=== PATIENT | female | born 1965 | race Caucasian/White ===

== ENCOUNTER → 2021-09-24 10:15 | Outpatient (BNVA) | payer MEDICAID, SELFPAY | PROVIDERS: PCP Obstetrics & Gynecology; Referring Provider Obstetrics & Gynecology; Visit Provider Specialist | DX: G31.84 Mild cognitive impairment of uncertain or unknown etiology (principal) | CPT/HCPCS: 36415; 82607; 82746; 85651; 86140; 86160; 86162; 86235; 86255; 86376; 96116; 99204; 99205 ==

== ENCOUNTER → 2021-11-15 10:32 | Outpatient (BNVA) | payer MEDICAID, SELFPAY | PROVIDERS: PCP Obstetrics & Gynecology; Visit Provider Specialist | DX: G30.9 Alzheimer's disease, unspecified (principal); F02.80 Dementia in other diseases classified elsewhere, unspecified severity, without behavioral disturbance, psychotic disturbance, mood disturbance, and anxiety; M13.0 Polyarthritis, unspecified; F32.A Depression, unspecified; M79.7 Fibromyalgia | CPT/HCPCS: 99214 ==

== ENCOUNTER 2021-12-11 12:26 | Outpatient (CLI) | payer MEDICAID, SELFPAY ==
--- NOTE | 2021-12-11 13:00 | MR_ITS ---
WS: [id number] MRI HEAD WITHOUT CONTRAST TECHNIQUE: Sagittal T1, T2 axial, T2 axial FLAIR, axial and coronal T1 images, axial susceptibility w eighted imaging, axial diffusion weighted images, and coronal T2 images were obtained. CLINICAL INFORMATION: G31.84 - Mild cognitive impairment, so stated COMPARISON: None. FINDINGS: No evidence of restricted diffusion to suggest acute ischemia. Ventricular system and cisterns are pa tent. Focal area of hemosiderin with surrounding encephalomalacia and gliosis involving the LEFT para sagittal cerebellum with blooming on the susceptibly weighted images. 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 Additional consideration is chronic focus of hemorrhage. No other suspicious foci of hemoside rin. Area of interest measures approximately 6 x 6 mm. This can be further evaluated MRI with gadolin ium to assess for adjacent enhancing venous angioma if indicated. Normal optic chiasm and pituitary infundibulum. Temporal lobes and hippocampal formations are normal in appearance. Normal vascular flow voids at the skull base. No extra-axial fluid collections. Parana angela sinuses and mastoid air cells are well aerated. MR/MR head wo con* [id number] IMPRESSION: 1. No evidence of diffusion to suggest acute ischemia. 2. 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 Less likely c hronic hypertensive hemorrhage. This can be further evaluated with gadolinium t o assess for concurrent venous angioma if desired. 3. Normal optic chiasm and pituitary infundibulum. 4. No other suspicious findings.
== END 2021-12-11 12:27 | disposition home or self-care (01) ==
LOC: RAD 12:27
PROVIDERS: PCP Obstetrics & Gynecology; Visit Provider Specialist
DX: G31.84 Mild cognitive impairment of uncertain or unknown etiology (principal); G93.89 Other specified disorders of brain
CPT/HCPCS: 70551